=== PATIENT | female | born 2000 | race Hispanic/Latino ===

== ENCOUNTER 2020-12-29 06:13 | Emergency (ER) | payer SELFPAY ==
[2020-12-29] MEDS ORDERED: IBUPROFEN 200 MG TAB PO ONE (07:03)
[2020-12-29] MEDS ORDERED: IBUPROFEN 400 MG TAB ONE (07:03)
[2020-12-29 08:21] LABS: SARS-COV-2 RT PCR POSITIVE (NEGATIVE)
--- NOTE | 2020-12-29 08:35 | EDPHYS ---
Physician Documentation [facility] Name: Chan Donaldson Age: 20 yrs Sex: Female : 2000 Arrival Date: 12/29/2020 Time: 06:15 Bed 12 Private MD: ED Physician Serg Roman HPI: 12/29 08:28 This 20 yrs old Female presents to ER via Ambulatory with complaints of cp Headache, Sore Throat, CHILLS. 08:28 The patient complains of pain to the top of head. The patient describes the headache as cp aching. Onset: The symptoms/episode began/occurred 2 day(s) ago. Associated signs and symptoms: Pertinent positives: sore throat, chills. 08:29 Patient reports symptoms started 2 days ago and became worse today. Has not taken any cp ibuprofen and/or tylenol for pain. Reports not much cough. 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 - Social history:: Smoking status: Patient denies any tobacco usage or history of. ROS: 08:30 Eyes: Negative for injury, pain, redness, and discharge. cp 08:30 Constitutional: Positive for body aches, chills, Negative for fever, poor PO intake. 08:30 ENT: Positive for sore throat, Negative for drainage from ear(s), ear pain, difficulty swallowing, difficulty handling secretions. 08:30 Neck: Negative for pain with movement, pain at rest, stiffness. 08:30 Cardiovascular: Negative for chest pain. 08:30 Respiratory: Negative for shortness of breath, wheezing. 08:30 Abdomen/GI: Negative for abdominal pain, nausea and vomiting, diarrhea, constipation. 08:30 Skin: Negative for rash. 08:30 Neuro: Positive for headache, Negative for altered mental status, weakness. 08:30 All other systems are negative. Exam: 08:31 Head/Face: Normocephalic, atraumatic. cp 08:31 Constitutional: The patient appears in no acute distress, alert, awake, non-toxic, well developed, well nourished. 08:31 Eyes: Periorbital structures: appear normal, Conjunctiva: normal, no exudate, no injection, Sclera: no appreciated abnormality, Lids and lashes: appear normal, bilaterally. 08:31 ENT: External ear(s): are unremarkable, Nose: is normal, Mouth: Lips: moist, Oral mucosa: moist, Posterior pharynx: Airway: no evidence of obstruction, patent. 08:31 Neck: ROM/movement: is normal, is supple, without pain, no range of motions limitations, Lymph nodes: no appreciated lymphadenopathy. 08:31 Chest/axilla: Inspection: normal. 08:31 Cardiovascular: Rate: tachycardic, Rhythm: regular. 08:31 Respiratory: the patient does not display signs of respiratory distress, Respirations: normal, no use of accessory muscles, no retractions, labored breathing, is not present, Breath sounds: are clear throughout, no decreased breath sounds, no stridor, no wheezing. 08:31 Abdomen/GI: Exam negative for discomfort, distension, guarding, Inspection: abdomen appears normal. 08:31 Neuro: Orientation: to person, place \\T\\ time. Mentation: is normal, Motor: moves all fours, strength is normal, Gait: is steady, at a normal pace, without difficulty. Vital Signs: 06:34 BP 118 / 80; Pulse 104; Resp 20; Temp 98.8(O); Pulse Ox 100% on R/A; Weight 65.77 kg; em Height 5 ft. 1 in. (154.94 cm); Pain 8/10; 06:34 Body Mass Index 27.40 (65.77 kg, 154.94 cm) em MDM: 07:00 Differential diagnosis: migraine, sinusitis, strep throat, influenza, COVID-19. cp 08:23 Patient medically screened. [facility] 08:34 Data reviewed: vital signs, nurses notes, lab test result(s). 08:34 Counseling: I had a detailed discussion with the patient and/or guardian regarding: the historical points, exam findings, and any diagnostic results supporting the discharge/admit diagnosis, lab results, to return to the emergency department if symptoms worsen or persist or if there are any questions or concerns that arise at home. ED course: VSS. Patient appears non-toxic and no signs of respiratory distress. Will discharge to home for continued monitoring. 12/29 06:39 Order name: COVID-19 : Document "Date of Symptom Onset" if Symptomatic. em 12/29 06:39 Order name: Flu em 12/29 06:39 Order name: Strep em 12/29 06:40 Order name: Group A Streptococcus Rapid Sc; Complete Time: 08:28 EDMS 12/29 07:56 Order name: Throat Culture EDMS 12/29 08:22 Order name: COVID-19/FLU A+B; Complete Time: 08:28 EDMS Administered Medications: 06:44 Drug: Ibuprofen 600 mg Route: PO; em 07:00 Follow up: Response: No adverse reaction iw Disposition: :22 Co-signature as Attending Physician, Serg Roman MD I agree with the assessment and sujey plan of care. Disposition Summary: 12/29/20 08:34 Discharge Ordered Location: Home cp Problem: new cp Symptoms: are unchanged cp Condition: Stable cp Diagnosis - SARS-associated coronavirus as the cause of diseases classified elsewhere cp Followup: cp - With: Private Physician - When: 2 - 3 days - Reason: Worsening of condition Discharge Instructions: - Discharge Summary Sheet cp - COVID-19 cp - Things to Know about the COVID-19 Pandemic - [facility] cp - 10 Things You Can Do to Manage Your COVID-19 Symptoms at Home - [facility] cp - COVID-19: Quarantine vs. Isolation - [facility] cp - Prevent the Spread of COVID-19 if You Are Sick - [facility] cp Forms: - Medication Reconciliation Form cp - Thank You Letter cp - Antibiotic Education cp - Prescription Opioid Use cp Signatures: Dispatcher [employer] EDIN Serg Roman MD MD cha Munoz, Edgar RN RN em Serg Forte PA PA cp Williams, Irene RN iw Corrections: (The following items were deleted from the chart) 07:25 06:40 CORONAVIRUS ordered. EDMS EDMS 07:26 06:40 Influenza Screen (A ordered. EDMS EDMS
--- NOTE | 2020-12-29 08:35 | ER ---
Nurse's Notes [facility] Name: Chan Donaldson Age: 20 yrs Sex: Female : 2000 Arrival Date: 12/29/2020 Time: 06:15 Bed 12 Private MD: Diagnosis: SARS-associated coronavirus as the cause of diseases classified elsewhere Presentation: 12/29 06:34 Chief complaint: Patient states: Saturday morning woke up with body aches and sore em throat, Saturday developed a big headache, took Tylenol and it helped a little bit, denies fever cough or shortness of breath. Coronavirus screen: Client denies travel out of the [place] in the last 14 days. chills, fatigue, headache. Ebola Screen: Patient negative for fever greater than or equal to 101.5 degrees Fahrenheit, and additional compatible Ebola Virus Disease symptoms Patient denies exposure to infectious person. Patient denies travel to an Ebola-affected area in the 21 days before illness onset. No symptoms or risks identified at this time. Initial Sepsis Screen: Does the patient meet any 2 criteria? HR > 90 bpm. No. Patient's initial sepsis screen is negative. Does the patient have a suspected source of infection? No. Patient's initial sepsis screen is negative. Risk Assessment: Do you want to hurt yourself or someone else? Patient reports no desire to harm self or others. Onset of symptoms was December 29, 2020. 06:34 Method Of Arrival: Ambulatory em 06:34 Acuity: CHINTAN 4 em Triage Assessment: 07:20 Headache History: The patient has had previous headaches and this one is similar to iw previous episodes. Pain: Also complains of no other associated symptoms. 07:20 Pain: Pain currently is 8 out of 10 on a pain scale. Pain began 1 day ago. 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 - Social history:: Smoking status: Patient denies any tobacco usage or history of. Screenin:26 Abuse screen: Denies threats or abuse. Denies injuries from another. Nutritional iw screening: No deficits noted. Tuberculosis screening: No symptoms or risk factors identified. Fall Risk None identified. Assessment: 08:24 General: Appears in no apparent distress. Behavior is calm, cooperative. General: iw Reports feeling ill for fatigue for. Pain: Complains of pain in body aches and sore throat. Neuro: Level of Consciousness is awake, alert, obeys commands, Oriented to person, place, time, situation. Cardiovascular: Patient's skin is warm and dry. Respiratory: Respiratory effort is even, unlabored. Derm: Skin is intact, is healthy with good turgor. Musculoskeletal: Range of motion: intact in all extremities. Vital Signs: 06:34 BP 118 / 80; Pulse 104; Resp 20; Temp 98.8(O); Pulse Ox 100% on R/A; Weight 65.77 kg; em Height 5 ft. 1 in. (154.94 cm); Pain 8/10; 06:34 Body Mass Index 27.40 (65.77 kg, 154.94 cm) em ED Course: 06:15 Patient arrived in ED. es 06:36 Triage completed. em 06:36 Arm band placed on. em 08:19 Serg Forte PA is PHCP. cp 08:19 Serg Roman MD is Attending Physician. cp 08:24 Dinorah Anderson RN is Primary Nurse. iw 08:24 Patient has correct armband on for positive identification. iw 08:26 No provider procedures requiring assistance completed. Patient did not have IV access iw during this emergency room visit. Administered Medications: 06:44 Drug: Ibuprofen 600 mg Route: PO; em 07:00 Follow up: Response: No adverse reaction iw Outcome: 08:34 Discharge ordered by . cp 08:42 Discharged to home ambulatory. iw 08:42 Condition: good 08:42 Discharge instructions given to patient, Instructed on discharge instructions, follow up and referral plans. Demonstrated understanding of instructions, follow-up care. 08:43 Patient left the ED. iw Signatures: Niesha De Paz Edgar RN RN em Dinorah Anderson RN RN iw Serg Forte PA PA cp
[2020-12-29 20:13] VITALS: BP 118/80; TEMP 98.8; O2SAT 100
== END 2020-12-29 08:43 | disposition home or self-care (01) ==
LOC: ER 06:13
DX: U07.1 COVID-19 (principal)
CPT/HCPCS: 0240U; 87070; 87081; 99283